=== PATIENT | male | born 1965 | race Caucasian/White ===

== ENCOUNTER 2017-08-12 17:35 | Emergency (ER) | payer MEDICAID ==
[~2017-08-12] VITALS: Ht 167.6 cm; Wt 82.0 kg
[~2017-08-12 17:35] MED LIST: ATOR40TA28 PO; METF500T4 PO
[2017-08-12 17:57] LABS: GLUCOSE,POINT OF CARE 178 MG/DL (70-110)
[2017-08-12] MEDS ORDERED: ACETAMINOPHEN 500 MG TABLET PO ONE (18:00)
[2017-08-12 18:50] LABS: INFLUENZA TYPE B NEGATIVE FOR TYPE B (NEGATIVE)
[2017-08-12] MEDS ORDERED: IBUPROFEN 600 MG TABLET PO ONE (19:00)
[2017-08-12] MEDS ORDERED: OSELTAMIVIR PHOSPHATE 75 MG CAPSULE PO ONE (19:00)
[2017-08-12 20:25] VITALS: BP 128/88
== END 2017-08-12 20:26 | disposition home or self-care (01) ==
LOC: EMS 17:36
DX: J09.X2 Influenza due to identified novel influenza A virus with other respiratory manifestations (principal); R91.1 Solitary pulmonary nodule; J02.9 Acute pharyngitis, unspecified; E11.9 Type 2 diabetes mellitus without complications; E78.00 Pure hypercholesterolemia, unspecified
CPT/HCPCS: 82962; 87804; 99285

== ENCOUNTER 2019-07-10 08:55 | Emergency (ER) | payer MEDICAID ==
[~2019-07-10] VITALS: Ht 167.6 cm; Wt 87.3 kg
[~2019-07-10 08:55] MED LIST changes: +METF-960 PO; -METF500T4 PO
[2019-07-10] MEDS ORDERED: ASPI81 PO (09:25)
[2019-07-10] MEDS ORDERED: ACYC800T PO (09:25)
[2019-07-10] MEDS ORDERED: VITAD400 PO (09:25)
[2019-07-10] MEDS ORDERED: HYD25 PO (09:25)
[2019-07-10] MEDS ORDERED: PRED20 PO (09:25)
[2019-07-10] MEDS ORDERED: GLIP5 PO (09:25)
[2019-07-10] MEDS ORDERED: MECL-111 PO (09:25)
[2019-07-10] MEDS ORDERED: OMEP20 PO (09:25)
[2019-07-10] MEDS ORDERED: SILD25 PO (09:25)
[2019-07-10] MEDS ORDERED: LORA10TA7 PO (09:25)
[2019-07-10] MEDS ORDERED: FLUC200T PO (09:25)
[2019-07-10] MEDS ORDERED: FLUT110HFA IH (09:25)
[2019-07-10 09:29] LABS: GLUCOSE,POINT OF CARE 175 MG/DL (70-110)
[2019-07-10] MEDS ORDERED: SODIUM CHLORIDE 0.9% 1,000 ML IV ONE ×3 (10:15→12:30)
[2019-07-10] MEDS ORDERED: KETOROLAC TROMETHAMINE 30 MG/ML VIAL IVP ONE (10:15)
[2019-07-10 10:41] LABS: BASOPHILS % (AUTO) 0.2 % (0.0-2.0); EOSINOPHILS % (AUTO) 0.1 % (1.0-6.0); HEMOGLOBIN 14.2 g/dL (13.5-17.5); LYMPHOCYTES # (AUTO) 1.6 K/uL (1.0-4.8); LYMPHOCYTES % (AUTO) 6.6 % (22.0-44.0); MEAN CORPUSCULAR HEMOGLOBIN 27.3 pg (26.0-34.0); MEAN CORPUSCULAR VOLUME 83 fL (80-100); MONOCYTES # (AUTO) 1.4 K/uL (0.1-1.0); MONOCYTES % (AUTO) 5.8 % (2.0-9.0); NEUTROPHILS # (AUTO) 20.6 K/uL (1.8-7.7); PLATELET COUNT (AUTO) 337 K/uL (150-450); RED BLOOD CELL COUNT(AUTO) 5.19 MIL/uL (4.50-5.90); RED CELL DISTRIBUTION WIDTH 13.7 % (11.5-14.5)
[2019-07-10 10:43] LABS: NEUTROPHILS % (AUTO) 87.3 % (40.0-70.0)
[2019-07-10 10:52] LABS: APPEARANCE,URINE CLEAR (CLEAR); BILIRUBIN,URINE NEGATIVE (NEGATIVE); GLUCOSE, URINE (UA) 100 mg/dL (NEGATIVE); KETONES,URINE NEGATIVE (NEGATIVE); LEUKOCYTE ESTERASE ,URINE NEGATIVE (NEGATIVE); NITRATE,URINE NEGATIVE (NEGATIVE); OCCULT BLOOD,URINE SMALL (NEGATIVE); PH,URINE 6.5 (5.0-8.0); PROTEIN,URINE POS 1+ (NEGATIVE); UROBILINOGEN,URINE 0.2 mg/dL (<=1.0)
[2019-07-10 10:57] LABS: ANION GAP 6 mmol/L (8-16); CALCIUM, TOTAL 8.9 mg/dL (8.8-10.5); CARBON DIOXIDE 28 mmol/L (22-29); CHLORIDE 102 mmol/L (98-107); CREATININE 0.88 mg/dL (0.60-1.30); GLOMERULAR FILTR. RATE CALC > 60 mL/min (>60); GLUCOSE,RANDOM 160 mg/dL (70-110); POTASSIUM 3.7 mmol/L (3.5-5.1); SODIUM SERUM 136 mmol/L (136-145); UREA NITROGEN, BLOOD 16 mg/dL (7-18)
[2019-07-10 11:04] LABS: B-TYPE NATRIURETIC PEPTIDE 19 pg/mL (0-100)
[2019-07-10 11:06] LABS: BACTERIA,URINE None Seen /HPF (None Seen); WBC,URINE None Seen /HPF (0-5)
[2019-07-10 11:07] LABS: ALANINE AMINOTRANSFERASE 42 U/L (12-78); ALBUMIN 3.3 g/dL (3.4-5.0); ALKALINE PHOSPHATASE 100 U/L (46-116); ASPARTATE AMINOTRANSFERASE 22 U/L (15-37); BILIRUBIN,TOTAL 0.4 mg/dL (0.1-1.0); TOTAL PROTEIN, SERUM 7.7 g/dL (6.4-8.2)
[2019-07-10] MEDS ORDERED: MORPHINE SULFATE 4 MG/ML SYRINGE IVP ONE (11:15)
[2019-07-10] MEDS ORDERED: ONDANSETRON HCL 4 MG/2 ML VIAL IVP ONE (11:15)
[2019-07-10] MEDS ORDERED: GADOBUTROL 1 MMOL/ML 10 ML VIAL IVP ONE (11:57)
[2019-07-10 13:57] LABS: BASOPHILS % (AUTO) 0.3 % (0.0-2.0); EOSINOPHILS % (AUTO) 0.2 % (1.0-6.0); HEMATOCRIT 39.3 % (41-53); HEMOGLOBIN 12.8 g/dL (13.5-17.5); LYMPHOCYTES # (AUTO) 1.7 K/uL (1.0-4.8); LYMPHOCYTES % (AUTO) 9.2 % (22.0-44.0); MEAN CORPUSCULAR HEMOGLOBIN 27.4 pg (26.0-34.0); MEAN CORPUSCULAR HGB CONC 32.6 G/dL (31.0-37.0); MEAN CORPUSCULAR VOLUME 84 fL (80-100); MONOCYTES # (AUTO) 1.3 K/uL (0.1-1.0); MONOCYTES % (AUTO) 6.7 % (2.0-9.0); NEUTROPHILS # (AUTO) 15.8 K/uL (1.8-7.7); NEUTROPHILS % (AUTO) 83.6 % (40.0-70.0); PLATELET COUNT (AUTO) 281 K/uL (150-450); RED BLOOD CELL COUNT(AUTO) 4.67 MIL/uL (4.50-5.90); RED CELL DISTRIBUTION WIDTH 13.7 % (11.5-14.5)
[2019-07-10 14:43] VITALS: BP 143/68
== END 2019-07-10 14:49 | disposition home or self-care (01) ==
LOC: EMS 08:56
DX: G47.00 Insomnia, unspecified (principal); R51 Headache; R42 Dizziness and giddiness; E11.9 Type 2 diabetes mellitus without complications; E78.00 Pure hypercholesterolemia, unspecified; Z98.890 Other specified postprocedural states
CPT/HCPCS: 36415; 70553; 71045; 80053; 81001; 82962; 83880; 84484; 85025; 87040; 96361; 96374; 96375; 99284; A9585; J1885; J2270; J2405; J7030